=== PATIENT | female | born 1945 | race African-American/Black ===

== ENCOUNTER 2017-10-04 09:33 | Emergency (ER) | payer MEDICARE ==
[~2017-10-04] VITALS: Ht 172.7 cm; Wt 130.0 kg
[~2017-10-04 09:33] MED LIST: amlodipine; benazepril; carvedilol; insulin; metformin; ropinirole; simvastatin
[2017-10-04] MEDS ORDERED: IPRATROPIUM BROMIDE (0.02%) 0.5MG/2.5ML NEB HHN STA (09:42)
[2017-10-04] MEDS ORDERED: ALBUTEROL (0.083%) 2.5MG/3ML NEB HHN STA (09:42)
[2017-10-04] MEDS ORDERED: METHYLPREDNISOLONE SOD SUCC 125 MG/2 ML VIAL IV STA (09:42)
[2017-10-04 10:15] LABS: BASOPHILS % 0.4 % (0.0-2.0); EOSINOPHILS % 6.4 % (0.0-5.0); HEMATOCRIT. 36.9 % (36.0-48.0); HEMOGLOBIN. 12.7 g/dL (12.0-16.0); LYMPHOCYTES % 35.9 % (20.0-50.0); MEAN CORPUSCULAR HEMOGLOBIN 28.3 pg (28.0-32.0); MEAN CORPUSCULAR VOLUME 82.4 fL (81.0-99.0); MEAN PLATELET VOLUME 8.6 fl (7.4-10.4); MONOCYTES % 9.1 % (2.0-8.0); NEUTROPHILS % 48.2 % (40.0-76.0); PLATELET 236 x1000/uL (130-400); RED BLOOD CELL COUNT 4.48 mill/uL (4.2-5.4); RED CELL DISTRIBUTION WIDTH 17.6 % (11.6-14.6)
[2017-10-04 10:19] LABS: CHLORIDE 107 mEq/L (98-107)
[2017-10-04 10:21] LABS: INR 1.1; PROTHROMBIN TIME 11.1 sec (9.4-11.6)
[2017-10-04] MEDS ORDERED: AMLODIPINE 10MG TABLET PO ONE (11:30)
[2017-10-04 12:47] VITALS: BP 121/85
== END 2017-10-04 12:51 | disposition home or self-care (01) ==
LOC: ER 11:06
DX: J45.909 Unspecified asthma, uncomplicated (principal); I10 Essential (primary) hypertension; E11.9 Type 2 diabetes mellitus without complications; Z79.4 Long term (current) use of insulin
CPT/HCPCS: 36415; 71045; 80053; 83880; 84484; 85025; 85610; 93005; 94644; 96374; 99285; J2930; J7611

== ENCOUNTER 2023-02-24 10:18 | Emergency (ER) | payer MEDICARE, OTHER ==
[~2023-02-24] VITALS: Ht 165.1 cm; Wt 92.0 kg
[~2023-02-24 10:18] MED LIST changes: +ALLO100T PO; +ATOR40TA70 MT; +CAND32TA21 PO; +CLOP75TA33 MT; +DULO30CA52 PO; +DULO60CA64 MT; +FURO40TA5 MT; +GABA-290 MT; +HYDR-4001 MT; +METO-385 PO; +MONT-39 PO; +PANT40TA51 MT; +POTA-185 PO; +TIZA2CAP7 PO
[2023-02-24] MEDS ORDERED: IPRATROPIUM/ALBUTEROL 0.5-3(2.5)MG/3ML NEB HHN ONE (11:45)
[2023-02-24] MEDS ORDERED: FUROSEMIDE 40MG/4ML VIAL IVP ONE (11:45)
[2023-02-24] MEDS ORDERED: METHYLPREDNISOLONE SOD SUCC 40MG/ML (ACT-O-VIAL) IV ONE (11:45)
[2023-02-24 12:14] LABS: HEMATOCRIT 36.7 % (36.0-48.0); HEMOGLOBIN 12.6 g/dL (12.0-16.0); MEAN CORPUSCULAR HEMOGLOBIN 26.5 pg (28.0-32.0); MEAN CORPUSCULAR HGB CONC 34.3 g/dL (31.0-37.0); MEAN CORPUSCULAR VOLUME 77.3 fL (81.0-99.0); PLATELET 228 x1000/uL (130-400); RED BLOOD CELL COUNT 4.74 mill/uL (4.2-5.4); RED CELL DISTRIBUTION WIDTH 19.1 % (11.6-14.6); WHITE BLOOD COUNT 4.9 x1000/uL (4.5-11.0)
[2023-02-24 12:38] LABS: CHLORIDE 98 mEq/L (98-107); INDEX HEMOLYSI 3 (1-3); INDEX ICTERIC 1 (1-4); INDEX LIPEMIC 1 (1-3); POTASSIUM 4.5 mEq/L (3.5-5.1); SODIUM 129 mEq/L (136-145)
[2023-02-24 12:52] LABS: ALANINE AMINOTRANSFERASE 20 IU/L (13-61); ALBUMIN 3.8 g/dL (3.4-5.0); ASPARTATE AMINOTRANSFERASE 21 IU/L (15-37); BILIRUBIN TOTAL 0.5 mg/dL (0.1-1.0); CALCIUM 8.9 mg/dL (8.5-10.1); CARBON DIOXIDE 26 mEq/L (21-32); CREATININE 0.9 mg/dL (0.6-1.3); GLUCOSE 81 mg/dL (70-105); NT PRO B-TYPE NATRIURETIC PEP 50 pg/mL (5-125); PROTEIN TOTAL 7.7 g/dL (6.0-8.3); TROPONIN I HIGH SENSITIVITY 7 ng/L (<54); UREA NITROGEN BLOOD 17 mg/dL (7-21)
[2023-02-24] MEDS ORDERED: IPRATROPIUM/ALBUTEROL 0.5-3(2.5)MG/3ML NEB ONE (15:53)
[2023-02-24 15:59] VITALS: PULSE 95; RESP 18; O2SAT 98
[2023-02-24 16:00] VITALS: TEMP 98.2
[2023-02-24] MEDS ORDERED: NIFEDIPINE XL 60MG TAB PO ONE (17:30)
[2023-02-24 21:20] VITALS: BP 167/62; PULSE 101; RESP 16
== END 2023-02-24 21:39 | disposition short-term general hospital (02) ==
LOC: ER 10:18
DX: J44.1 Chronic obstructive pulmonary disease with (acute) exacerbation (principal); E11.9 Type 2 diabetes mellitus without complications; E78.00 Pure hypercholesterolemia, unspecified; I10 Essential (primary) hypertension; Z86.73 Personal history of transient ischemic attack (TIA), and cerebral infarction without residual deficits; Z79.899 Other long term (current) drug therapy; Z20.822 Contact with and (suspected) exposure to COVID-19
CPT/HCPCS: 99285; 96374; 71045; 96375; 87426; 80053; 83880; 85027; 85730; 84484; 36415; 94640; 93005; J1940; J2920; C9803

== ENCOUNTER 2023-05-11 14:42 | Inpatient (IN) | payer OTHER, MEDICARE ==
[~2023-05-11] VITALS: Ht 165.1 cm; Wt 90.4 kg
[2023-05-11] MEDS ORDERED: ALBUTEROL (0.083%) 2.5MG/3ML NEB HHN STA (15:01)
[2023-05-11] MEDS ORDERED: IPRATROPIUM BROMIDE (0.02%) 0.5MG/2.5ML NEB HHN STA (15:01)
[2023-05-11] MEDS ORDERED: METHYLPREDNISOLONE SOD SUCC 125MG/2ML (ACT-O-VIAL) IV STA (15:01)
[2023-05-11 16:10] VITALS: PULSE 80; RESP 24; O2SAT 96
[2023-05-11 17:04] LABS: BASOPHILS % 0.4 % (0.0-2.0); DIFFERENTIAL COMMENT 0; EOSINOPHILS % 11.9 % (0.0-5.0); HEMATOCRIT. 35.3 % (36.0-48.0); HEMOGLOBIN. 12.2 g/dL (12.0-16.0); LYMPHOCYTES % 22.2 % (20.0-50.0); MEAN CORPUSCULAR HEMOGLOBIN 27.5 pg (28.0-32.0); MEAN CORPUSCULAR HGB CONC 34.4 g/dL (31.0-37.0); MEAN CORPUSCULAR VOLUME 79.7 fL (81.0-99.0); MEAN PLATELET VOLUME 7.8 fl (7.4-10.4); MONOCYTES % 10.8 % (2.0-8.0); NEUTROPHILS % 54.7 % (40.0-76.0); PLATELET 260 x1000/uL (130-400); RED BLOOD CELL COUNT 4.43 mill/uL (4.2-5.4); RED CELL DISTRIBUTION WIDTH 18.8 % (11.6-14.6); WHITE BLOOD COUNT 7.1 x1000/uL (4.5-11.0)
[2023-05-11 17:13] LABS: PROTHROMBIN TIME 11.1 sec (9.6-11.0)
[2023-05-11 17:41] LABS: ALANINE AMINOTRANSFERASE 11 IU/L (10-49); ALBUMIN 4.3 g/dL (3.2-4.8); ASPARTATE AMINOTRANSFERASE 26 IU/L (<34); BILIRUBIN TOTAL 0.3 mg/dL (0.1-1.0); CALCIUM 9.4 mg/dL (8.7-10.4); CARBON DIOXIDE 27 mEq/L (21-32); CHLORIDE 106 mEq/L (98-107); CREATININE 0.9 mg/dL (0.6-1.0); GLUCOSE 54 mg/dL (70-105); POTASSIUM 4.9 mEq/L (3.5-5.1); PROTEIN TOTAL 7.4 g/dL (6.0-8.3); SODIUM 141 mEq/L (136-145); TROPONIN I HIGH SENSITIVITY 5 ng/L (3.0-34); UREA NITROGEN BLOOD 9 mg/dL (9-23)
[2023-05-11 22:30] VITALS: BP 162/61; PULSE 91; RESP 18; RESP 20; TEMP 99.5
[2023-05-11] MEDS ORDERED: PREG150C MT (23:11)
[2023-05-11] MEDS ORDERED: LORA10TA7 MT (23:11)
[2023-05-11] MEDS ORDERED: INSLIS SUBCUT (23:11)
[2023-05-11] MEDS ORDERED: NIFE90TA60 MT (23:11)
[2023-05-11] MEDS ORDERED: INSU100V51 (23:11)
[2023-05-11] MEDS ORDERED: LOSA-413 MT (23:11)
[2023-05-11] MEDS ORDERED: BUDE6.9H INH (23:11)
[2023-05-11] MEDS ORDERED: ANAS1TAB49 PO (23:11)
[2023-05-11] MEDS ORDERED: GUAI600T44 MT (23:11)
[2023-05-11] MEDS ORDERED: NA PHOS,M-B/NA PHOS,DI-BA ENEMA 118ML PR PRN (23:45)
[2023-05-11] MEDS ORDERED: DOCUSATE SODIUM 100MG CAPSULE PO PRN (23:45)
[2023-05-11] MEDS ORDERED: ACETAMINOPHEN 325MG TABLET PO PRN (23:45)
[2023-05-11] MEDS ORDERED: MAGNESIUM/ALUMINUM HYDROXIDE/SIMETHICONE 30ML UDC PO PRN (23:45)
[2023-05-11] MEDS ORDERED: CLONIDINE 0.1MG TABLET PO PRN (23:45)
[2023-05-11] MEDS ORDERED: ZOLPIDEM TARTRATE 5MG TABLET PO PRN (23:45)
[2023-05-12] VITALS (8 sets, daily range): BP systolic 139–157; BP diastolic 45–63; PULSE 76–97; RESP 17–20; TEMP 97.7–98.1; O2SAT 90–98
[2023-05-12] MEDS ORDERED: DEXTROSE 50% WATER 50ML SYRINGE IV PRN (00:15)
[2023-05-12] MEDS: NIFEDIPINE XL 90MG TAB PO SCH ×2 (00:43→09:02)
[2023-05-12] MEDS: METOPROLOL SUCCINATE 50MG ER TABLET PO SCH ×2 (00:43→09:04)
[2023-05-12] MEDS: INSULIN LISPRO 100 UNITS/ML SUBCUT SCH ×4 (00:45→17:30)
[2023-05-12] MEDS: IPRATROPIUM/ALBUTEROL 0.5-3(2.5)MG/3ML NEB HHN PRN ×2 (01:11→10:02)
[2023-05-12] MEDS ORDERED: LEVOFLOXACIN 500MG PREMIX 100 ML IV SCH (04:30)
[2023-05-12] MEDS: GABAPENTIN 300MG CAPSULE PO SCH ×2 (05:02→13:24)
[2023-05-12] MEDS: BLOOD SUGAR DIAGNOSTIC STRIP TEST SCH ×3 (06:00→17:10)
[2023-05-12 07:27] LABS: HEMATOCRIT. 37.9 % (36.0-48.0); HEMOGLOBIN. 12.4 g/dL (12.0-16.0); MEAN CORPUSCULAR HEMOGLOBIN 26.4 pg (28.0-32.0); MEAN CORPUSCULAR HGB CONC 32.8 g/dL (31.0-37.0); MEAN CORPUSCULAR VOLUME 80.3 fL (81.0-99.0); PLATELET 281 x1000/uL (130-400); RED BLOOD CELL COUNT 4.71 mill/uL (4.2-5.4); RED CELL DISTRIBUTION WIDTH 18.7 % (11.6-14.6); WHITE BLOOD COUNT 8.9 x1000/uL (4.5-11.0)
[2023-05-12 07:36] LABS: DIFFERENTIAL COMMENT 1
[2023-05-12] MEDS ORDERED: INSULIN LISPRO 100 UNITS/ML SUBCUT SCH (07:40)
[2023-05-12 08:09] LABS: BG BASE EXCESS 0.7 mmol/L (-2.0-2.0); BG CARBOXYHEMOGLOBIN 0.4 % (0.5-1.5); BG DEOXYHEMOGLOBIN 15.8 % (0.0-5.0); BG HCO3 ACT 26.5 mmol/L (22.0-26.0); BG METHEMOGLOBIN 0.1 % (0.0-1.5); BG OXYGEN SATURATION 84.1 % (92.0-98.5); BG OXYHEMOGLOBIN 83.7 % (94.0-97.0); BG PCO2 47.6 mmHg (35.0-45.0); BG PH 7.364 (7.350-7.450); BG PO2 51.4 mmHg (75.0-100.0); BG SAMPLE SITE LEFT RADIAL; BG TOTAL HEMOGLOBIN 12.6 g/dL (12.0-18.0); BG VENT MODE ROOM AIR
[2023-05-12 08:15] LABS: CALCIUM 9.7 mg/dL (8.7-10.4); CARBON DIOXIDE 26 mEq/L (21-32); CHLORIDE 102 mEq/L (98-107); CREATININE 0.8 mg/dL (0.6-1.0); GLUCOSE 216 mg/dL (70-105); POTASSIUM 4.8 mEq/L (3.5-5.1); SODIUM 138 mEq/L (136-145); UREA NITROGEN BLOOD 12 mg/dL (9-23)
[2023-05-12] MEDS ORDERED: ALLOPURINOL 100 MG TABLET PO SCH (09:00)
[2023-05-12] MEDS ORDERED: PREDNISONE 20MG TABLET PO SCH (09:00)
[2023-05-12] MEDS ORDERED: ENOXAPARIN 40MG/0.4ML SYR SUBCUT SCH (09:00)
[2023-05-12] MEDS ORDERED: DULOXETINE HCL 60MG DR CAPSULE PO SCH (09:00)
[2023-05-12] MEDS ORDERED: CLOPIDOGREL 75MG TABLET PO SCH (09:00)
[2023-05-12] MEDS ORDERED: ATORVASTATIN CALCIUM 40MG TABLET PO SCH (09:00)
[2023-05-12] MEDS ORDERED: LOSARTAN 50 MG TABLET PO SCH (09:00)
[2023-05-12] MEDS ORDERED: PANTOPRAZOLE 40MG DR TABLET PO SCH (09:00)
[2023-05-12] MEDS ORDERED: ANASTROZOLE 1 MG TABLET PO SCH (09:00)
[2023-05-12] MEDS ORDERED: DULOXETINE HCL 30MG DR CAPSULE PO SCH (09:00)
[2023-05-12] MEDS ORDERED: MONTELUKAST SODIUM 10MG TABLET PO SCH (09:00)
[2023-05-12] MEDS ORDERED: BUDESONIDE 0.5MG/2ML NEB HHN SCH (09:00)
[2023-05-12] MEDS ORDERED: GUAIFENESIN-DM 200MG-20MG/10ML UDC PO PRN (13:15)
[2023-05-12] MEDS ORDERED: INSULIN GLARGINE 100 UNITS/ML SUBCUT SCH (22:00)
[2023-05-13 00:28] LABS: PLATELET ESTIMATE NORMAL
[2023-05-13] MEDS ORDERED: LEVOFLOXACIN 750MG PREMIX 150 ML IV SCH (06:00)
== END 2023-05-12 19:13 | disposition home or self-care (01) | DRG 189 ==
LOC: ER 14:42 → 8WST 22:57
PROVIDERS: ADMIT Internal Medicine Pulmonary Disease; ATTEND Internal Medicine Pulmonary Disease
DX: J96.01 Acute respiratory failure with hypoxia (principal); J45.901 Unspecified asthma with (acute) exacerbation; I10 Essential (primary) hypertension; E66.9 Obesity, unspecified; Z20.822 Contact with and (suspected) exposure to COVID-19; E11.9 Type 2 diabetes mellitus without complications; Z68.33 Body mass index [BMI] 33.0-33.9, adult; Z85.3 Personal history of malignant neoplasm of breast; Z86.73 Personal history of transient ischemic attack (TIA), and cerebral infarction without residual deficits; Z79.899 Other long term (current) drug therapy
CPT/HCPCS: 36415; 36600; 71045; 80048; 80053; 82375; 82805; 82962; 83036; 83880; 84484; 85025; 87426; 93005; 94640; 99285; J1650; J1815; J1956; J2930; J7512; J7626

== ENCOUNTER 2023-06-06 11:24 | Emergency (ER) | payer MEDICARE, OTHER ==
[~2023-06-06] VITALS: Ht 167.6 cm; Wt 91.0 kg
[~2023-06-06 11:24] MED LIST changes: +ANAS1TAB49 PO; +BUDE6.9H INH; +GUAI600T44 MT; +INSLIS SUBCUT; +INSU100V51; +LORA10TA7 MT; +LOSA-413 MT; +NIFE90TA60 MT; +PREG150C MT
[2023-06-06 11:33] VITALS: O2SAT 97
[2023-06-06] MEDS ORDERED: PREDNISONE 20MG TABLET PO ONE (14:45)
[2023-06-06] MEDS ORDERED: IPRATROPIUM/ALBUTEROL 0.5-3(2.5)MG/3ML NEB HHN ONE (14:45)
[2023-06-06 14:49] LABS: BASOPHILS % 0.4 % (0.0-2.0); DIFFERENTIAL COMMENT 0; EOSINOPHILS % 5.8 % (0.0-5.0); HEMATOCRIT. 34.4 % (36.0-48.0); HEMOGLOBIN. 11.8 g/dL (12.0-16.0); LYMPHOCYTES % 17.1 % (20.0-50.0); MEAN CORPUSCULAR HEMOGLOBIN 27.2 pg (28.0-32.0); MEAN CORPUSCULAR HGB CONC 34.2 g/dL (31.0-37.0); MEAN CORPUSCULAR VOLUME 79.5 fL (81.0-99.0); NEUTROPHILS % 66.7 % (40.0-76.0); PLATELET 252 x1000/uL (130-400); RED BLOOD CELL COUNT 4.33 mill/uL (4.2-5.4); RED CELL DISTRIBUTION WIDTH 18.2 % (11.6-14.6); WHITE BLOOD COUNT 5.9 x1000/uL (4.5-11.0)
[2023-06-06 15:06] LABS: ALANINE AMINOTRANSFERASE 11 IU/L (10-49); ALBUMIN 4.1 g/dL (3.2-4.8); ASPARTATE AMINOTRANSFERASE 13 IU/L (<34); BILIRUBIN TOTAL 0.4 mg/dL (0.1-1.0); CALCIUM 9.4 mg/dL (8.7-10.4); CARBON DIOXIDE 26 mEq/L (21-32); CHLORIDE 107 mEq/L (98-107); CREATININE 0.9 mg/dL (0.6-1.0); GLUCOSE 110 mg/dL (70-105); POTASSIUM 4.3 mEq/L (3.5-5.1); PROTEIN TOTAL 7.2 g/dL (6.0-8.3); SODIUM 141 mEq/L (136-145); UREA NITROGEN BLOOD 15 mg/dL (9-23)
[2023-06-06 15:20] LABS: TROPONIN I HIGH SENSITIVITY 5 ng/L (3.0-34)
[2023-06-06] MEDS ORDERED: CEFP200T13 MT (16:37)
[2023-06-06] MEDS ORDERED: P50 MT (16:37)
[2023-06-06] MEDS ORDERED: AZIT250T12 MT (16:37)
[2023-06-06] MEDS ORDERED: ALBU6.7H15 INH (16:37)
[2023-06-06] MEDS ORDERED: IPRATROPIUM/ALBUTEROL 0.5-3(2.5)MG/3ML NEB ONE (16:54)
[2023-06-06 17:03] VITALS: PULSE 78; RESP 22
[2023-06-06 18:00] VITALS: BP 146/61; PULSE 77; RESP 18; TEMP 98.2
[2023-06-06] MEDS ORDERED: PREDNISONE 20MG TABLET PO NR (18:00)
== END 2023-06-06 18:02 | disposition home or self-care (01) ==
LOC: ER 11:24
DX: J18.9 Pneumonia, unspecified organism (principal); J44.1 Chronic obstructive pulmonary disease with (acute) exacerbation; E11.9 Type 2 diabetes mellitus without complications; I10 Essential (primary) hypertension; Z85.9 Personal history of malignant neoplasm, unspecified; Z90.13 Acquired absence of bilateral breasts and nipples
CPT/HCPCS: 36415; 71045; 80053; 83880; 84484; 85025; 93005; 94640; 99285; J7512

== ENCOUNTER 2023-08-06 10:38 | Emergency (ER) | payer OTHER ==
[~2023-08-06] VITALS: Ht 165.1 cm; Wt 94.0 kg
[~2023-08-06 10:38] MED LIST changes: +ALBU6.7H15 INH; +AZIT250T12 MT; +CEFP200T13 MT; +P50 MT
[2023-08-06 10:49] VITALS: TEMP 98.5; O2SAT 99
[2023-08-06] MEDS ORDERED: BENZ1LOZ73 MT (13:47)
[2023-08-06] MEDS ORDERED: GUAI-450 MT (13:47)
[2023-08-06] MEDS ORDERED: DICL100G58 TP (14:21)
[2023-08-06] MEDS ORDERED: METH-653 MT (14:21)
[2023-08-06 14:27] VITALS: BP 130/70; PULSE 80; RESP 15
== END 2023-08-06 14:34 | disposition home or self-care (01) ==
LOC: ER 10:38
DX: S39.012A Strain of muscle, fascia and tendon of lower back, initial encounter (principal); R05.9 Cough, unspecified; J44.9 Chronic obstructive pulmonary disease, unspecified; E11.9 Type 2 diabetes mellitus without complications; I10 Essential (primary) hypertension; Z85.9 Personal history of malignant neoplasm, unspecified; Z79.899 Other long term (current) drug therapy; W18.39XA Other fall on same level, initial encounter; Y93.89 Activity, other specified; Y92.89 Other specified places as the place of occurrence of the external cause; Y99.8 Other external cause status
CPT/HCPCS: 71045; 73502; 99284

== ENCOUNTER 2024-06-16 11:28 | Emergency (ER) | payer OTHER, MEDICARE ==
[~2024-06-16] VITALS: Ht 165.1 cm; Wt 95.0 kg
[~2024-06-16 11:28] MED LIST changes: -AZIT250T12 MT; +BENZ1LOZ73 MT; -CEFP200T13 MT; +CELE-116 PO; +DICL100G58 TP; -DULO60CA64 MT; +FOLI-43 PO; +GUAI-450 MT; +LOSA100T33 PO; +METH-653 MT; -P50 MT
[2024-06-16 11:35] VITALS: O2SAT 98
[2024-06-16 11:37] VITALS: BP 173/56; PULSE 89; RESP 18; TEMP 98.3; O2SAT 97
[2024-06-16] MEDS: ACETAMINOPHEN 500MG TABLET PO ONE (13:17)
[2024-06-16] MEDS: KETOROLAC 30MG/ML VIAL IM ONE (13:18)
[2024-06-26] MEDS ORDERED: AZIT250T12 MT (14:05)
== END 2024-06-16 14:24 | disposition home or self-care (01) ==
LOC: ER 11:28
DX: M54.30 Sciatica, unspecified side (principal); I10 Essential (primary) hypertension; E11.9 Type 2 diabetes mellitus without complications; J44.9 Chronic obstructive pulmonary disease, unspecified; Z79.899 Other long term (current) drug therapy; Z79.811 Long term (current) use of aromatase inhibitors; Z79.51 Long term (current) use of inhaled steroids; Z79.1 Long term (current) use of non-steroidal anti-inflammatories (NSAID); Z79.02 Long term (current) use of antithrombotics/antiplatelets; Z79.4 Long term (current) use of insulin; Z90.10 Acquired absence of unspecified breast and nipple; Z98.890 Other specified postprocedural states
CPT/HCPCS: 99283; 96372; J1885

== ENCOUNTER 2025-01-09 10:03 | Emergency (ER) | payer OTHER, MEDICARE ==
[~2025-01-09] VITALS: Ht 165.1 cm; Wt 91.0 kg
[~2025-01-09 10:03] MED LIST changes: +AZIT250T12 MT
[2025-01-09 10:08] VITALS: O2SAT 99
[2025-01-09] MEDS: KETOROLAC 15MG/ML VIAL IM ONE (11:05)
[2025-01-09] MEDS: CYCLOBENZAPRINE 10MG TABLET PO ONE (11:05)
[2025-01-09] MEDS: LIDOCAINE 5% PATCH TOP STA (11:06)
[2025-01-09] MEDS ORDERED: LIDO700A30 TP (12:14)
[2025-01-09] MEDS ORDERED: IBUP-2028 MT (12:14)
[2025-01-09] MEDS ORDERED: CYCL5TAB3 MT (12:14)
[2025-01-09 12:36] VITALS: BP 149/52; PULSE 75; RESP 16; TEMP 36.8; O2SAT 98
== END 2025-01-09 12:36 | disposition home or self-care (01) ==
LOC: ER 10:03
DX: M54.32 Sciatica, left side (principal); M54.31 Sciatica, right side; J44.9 Chronic obstructive pulmonary disease, unspecified; I10 Essential (primary) hypertension; E11.9 Type 2 diabetes mellitus without complications; Z90.10 Acquired absence of unspecified breast and nipple; Z79.899 Other long term (current) drug therapy; Z98.890 Other specified postprocedural states
CPT/HCPCS: 99283; 72100; 96372; J1885